=== PATIENT | female | born 1965 | race African-American/Black ===

== ENCOUNTER 2019-04-12 09:31 | Outpatient (CLI) | payer OTHER | END 2019-04-12 11:31 | disposition home or self-care (01) | LOC: ECT 09:31 | DX: F33.2 Major depressive disorder, recurrent severe without psychotic features (principal); F60.9 Personality disorder, unspecified; R53.1 Weakness; Z79.899 Other long term (current) drug therapy; Z81.8 Family history of other mental and behavioral disorders ==

== ENCOUNTER 2019-05-16 06:46 | Outpatient (RCR) | payer OTHER ==
[~2019-05-16] VITALS: Ht 170.2 cm; Wt 104.8 kg
[~2019-05-16 06:46] MED LIST: Ketorolac 30mg Inj ONE; Methohexital Sodium Syr 100mg/10ml IVP ONE; NS 500ML ONE; Succinylcholine 20mg/ml 10ml vial ONE
[2019-05-16] MEDS ORDERED: Midazolam 2mg/2ml Inj ONE (06:47)
[2019-05-16] MEDS ORDERED: Succinylcholine 20mg/ml 10ml vial ONE (06:47)
[2019-05-16] MEDS ORDERED: Methohexital Sodium Syr 100mg/10ml IVP ONE (06:47)
[2019-05-16] MEDS ORDERED: Excedrin Migraine tab ONE (06:47)
[2019-05-16] MEDS ORDERED: Ketorolac 60mg Inj IM ONE (06:47)
[2019-05-16] MEDS ORDERED: NS 500ML ONE (06:47)
[2019-05-16 10:53] VITALS: BP 141/81
[2019-05-16 11:03] VITALS: BP 138/71
[2019-05-16 11:08] VITALS: BP 134/57
[2019-05-16 11:13] VITALS: BP 131/65
[2019-05-16 11:18] VITALS: BP 145/64
[2019-05-16 13:30] VITALS: BP 141/81
[2019-05-18 09:02] VITALS: BP 144/81
[2019-05-18] MEDS ORDERED: Excedrin Migraine tab ORAL PRN (09:13)
[2019-05-18 09:15] VITALS: BP 152/76
[2019-05-18 09:20] VITALS: BP 153/72
[2019-05-18 09:25] VITALS: BP 150/76
[2019-05-18 09:30] VITALS: BP 155/76
[2019-05-21] MEDS ORDERED: Succinylcholine 20mg/ml 10ml vial ONE (06:00)
[2019-05-21] MEDS ORDERED: NS 500ML ONE (06:00)
[2019-05-21] MEDS ORDERED: Methohexital Sodium Syr 100mg/10ml IVP ONE (06:00)
[2019-05-21] MEDS ORDERED: Ketorolac 30mg Inj ONE (06:00)
[2019-05-21] MEDS ORDERED: Excedrin Migraine tab ONE (06:00)
[2019-05-21 08:03] VITALS: BP 126/52
[2019-05-21 08:51] VITALS: BP 172/79
[2019-05-21] MEDS ORDERED: Excedrin Migraine tab ORAL PRN (09:02)
[2019-05-21 09:08] VITALS: BP 152/84
[2019-05-21 09:13] VITALS: BP 143/79
[2019-05-21 09:18] VITALS: BP 137/72
== END 2019-05-21 | disposition home or self-care (01) ==
LOC: ECT 06:46
DX: F33.2 Major depressive disorder, recurrent severe without psychotic features (principal)
CPT/HCPCS: 90870; J0330; J1885; J2250; J7040

== ENCOUNTER 2019-05-23 10:16 | Outpatient (RCR) | payer OTHER ==
[~2019-05-23] VITALS: Ht 170.2 cm; Wt 104.8 kg
[2019-05-23 09:46] VITALS: BP 144/85
[2019-05-23 09:59] VITALS: BP 179/87
[2019-05-23 10:04] VITALS: BP 158/82
[2019-05-23 10:09] VITALS: BP 139/73
[2019-05-23 10:14] VITALS: BP 140/74
[~2019-05-23 10:16] MED LIST changes: +Excedrin Migraine tab ONE; +Excedrin Migraine tab ORAL PRN; +Midazolam 2mg/2ml Inj ONE
[2019-05-23] MEDS ORDERED: Excedrin Migraine tab ONE (10:17)
[2019-05-23] MEDS ORDERED: Succinylcholine 20mg/ml 10ml vial ONE (10:17)
[2019-05-23] MEDS ORDERED: Midazolam 2mg/2ml Inj ONE (10:17)
[2019-05-23] MEDS ORDERED: Methohexital Sodium Syr 100mg/10ml IVP ONE (10:17)
[2019-05-23] MEDS ORDERED: Ketorolac 60mg Inj IM ONE (10:17)
[2019-05-25 08:43] VITALS: BP 135/82
[2019-05-25] MEDS ORDERED: Excedrin Migraine tab ORAL PRN (08:53)
[2019-05-25 08:55] VITALS: BP 151/73
[2019-05-25 09:00] VITALS: BP 142/80
[2019-05-25] MEDS ORDERED: Excedrin Migraine tab ONE (09:00)
[2019-05-25] MEDS ORDERED: Ketorolac 60mg Inj IM ONE (09:00)
[2019-05-25] MEDS ORDERED: NS 500ML ONE (09:00)
[2019-05-25] MEDS ORDERED: Midazolam 2mg/2ml Inj ONE (09:00)
[2019-05-25] MEDS ORDERED: Succinylcholine 20mg/ml 10ml vial ONE (09:00)
[2019-05-25 09:05] VITALS: BP 142/77
[2019-05-25 09:10] VITALS: BP 145/74
[2019-05-28 08:30] VITALS: BP 131/83
[2019-05-28] MEDS ORDERED: Excedrin Migraine tab ORAL PRN (08:42)
[2019-05-28 08:45] VITALS: BP 171/84
[2019-05-28 08:50] VITALS: BP 140/83
[2019-05-28 08:55] VITALS: BP 133/74
[2019-05-28 09:00] VITALS: BP 136/68
[2019-05-28] MEDS ORDERED: NS 500ML ONE (09:00)
[2019-05-28] MEDS ORDERED: Ketorolac 60mg Inj IM ONE (09:00)
[2019-05-28] MEDS ORDERED: Succinylcholine 20mg/ml 10ml vial ONE (09:00)
[2019-05-28] MEDS ORDERED: Excedrin Migraine tab ONE (09:00)
[2019-05-28] MEDS ORDERED: Midazolam 2mg/2ml Inj ONE (09:00)
[2019-05-28] MEDS ORDERED: Methohexital Sodium Syr 100mg/10ml IVP ONE (09:00)
[2019-05-30 08:43] VITALS: BP 136/84
[2019-05-30] MEDS ORDERED: Excedrin Migraine tab ORAL PRN (08:54)
[2019-05-30 08:55] VITALS: BP 198/82
[2019-05-30 09:00] VITALS: BP 166/80
[2019-05-30] MEDS ORDERED: Methohexital Sodium Syr 100mg/10ml IVP ONE (09:00)
[2019-05-30] MEDS ORDERED: Midazolam 2mg/2ml Inj ONE (09:00)
[2019-05-30] MEDS ORDERED: Ketorolac 60mg Inj IM ONE (09:00)
[2019-05-30] MEDS ORDERED: NS 500ML ONE (09:00)
[2019-05-30] MEDS ORDERED: Succinylcholine 20mg/ml 10ml vial ONE (09:00)
[2019-05-30] MEDS ORDERED: Excedrin Migraine tab ONE (09:00)
[2019-05-30 09:05] VITALS: BP 151/80
[2019-05-30 09:10] VITALS: BP 147/74
[2019-06-01 09:04] VITALS: BP 130/83
[2019-06-01 09:15] VITALS: BP 151/84
[2019-06-01] MEDS ORDERED: Excedrin Migraine tab ORAL PRN (09:15)
[2019-06-01 09:20] VITALS: BP 140/70
[2019-06-01 09:25] VITALS: BP 150/83
[2019-06-01 09:30] VITALS: BP 153/78
[2019-06-04 08:54] VITALS: BP 132/83
[2019-06-04] MEDS ORDERED: Excedrin Migraine tab ONE (09:00)
[2019-06-04] MEDS ORDERED: NS 500ML ONE (09:00)
[2019-06-04] MEDS ORDERED: Methohexital Sodium Syr 100mg/10ml IVP ONE (09:00)
[2019-06-04] MEDS ORDERED: Succinylcholine 20mg/ml 10ml vial ONE (09:00)
[2019-06-04] MEDS ORDERED: Midazolam 2mg/2ml Inj ONE (09:00)
[2019-06-04] MEDS ORDERED: Ketorolac 60mg Inj IM ONE (09:00)
[2019-06-04] MEDS ORDERED: Excedrin Migraine tab ORAL PRN (09:05)
[2019-06-04 09:06] VITALS: BP 154/79
[2019-06-04 09:11] VITALS: BP 139/82
[2019-06-04 09:16] VITALS: BP 139/79
[2019-06-04 09:21] VITALS: BP 136/80
[2019-06-06] MEDS ORDERED: Ketorolac 60mg Inj IM ONE (09:00)
[2019-06-06] MEDS ORDERED: Methohexital Sodium Syr 100mg/10ml IVP ONE (09:00)
[2019-06-06] MEDS ORDERED: Midazolam 2mg/2ml Inj ONE (09:00)
[2019-06-06] MEDS ORDERED: Excedrin Migraine tab ONE (09:00)
[2019-06-06 09:12] VITALS: BP 146/92
[2019-06-06] MEDS ORDERED: Excedrin Migraine tab ORAL PRN (09:23)
[2019-06-06 09:25] VITALS: BP 147/76
[2019-06-06 09:30] VITALS: BP 144/82
[2019-06-06 09:35] VITALS: BP 145/72
[2019-06-06 09:40] VITALS: BP 147/71
[2019-06-08] MEDS ORDERED: Midazolam 2mg/2ml Inj ONE (09:00)
[2019-06-08] MEDS ORDERED: Excedrin Migraine tab ONE (09:00)
[2019-06-08] MEDS ORDERED: Methohexital Sodium Syr 100mg/10ml IVP ONE (09:00)
[2019-06-08] MEDS ORDERED: Succinylcholine 20mg/ml 10ml vial ONE (09:00)
[2019-06-08] MEDS ORDERED: NS 500ML ONE (09:00)
[2019-06-08] MEDS ORDERED: Ketorolac 60mg Inj IM ONE (09:00)
[2019-06-08 09:06] VITALS: BP 131/85
[2019-06-08 09:20] VITALS: BP 139/76
[2019-06-08 09:25] VITALS: BP 139/76
[2019-06-08 09:30] VITALS: BP 139/76
[2019-06-08 09:35] VITALS: BP 134/77
[2019-06-11] MEDS ORDERED: Excedrin Migraine tab ONE (06:00)
[2019-06-11] MEDS ORDERED: NS 500ML ONE (06:00)
[2019-06-11] MEDS ORDERED: Ketorolac 30mg Inj ONE (06:00)
[2019-06-11] MEDS ORDERED: Midazolam 2mg/2ml Inj ONE (06:00)
[2019-06-11] MEDS ORDERED: Succinylcholine 20mg/ml 10ml vial ONE (06:00)
[2019-06-11] MEDS ORDERED: Methohexital Sodium Syr 100mg/10ml IVP ONE (06:00)
[2019-06-11 09:15] VITALS: BP 143/91
[2019-06-11 09:25] VITALS: BP 192/96
[2019-06-11] MEDS ORDERED: Excedrin Migraine tab ORAL PRN (09:25)
[2019-06-11 09:30] VITALS: BP 160/81
[2019-06-11 09:35] VITALS: BP 140/82
[2019-06-11 09:40] VITALS: BP 141/82
[2019-06-15] MEDS ORDERED: Succinylcholine 20mg/ml 10ml vial ONE (09:00)
[2019-06-15] MEDS ORDERED: Methohexital Sodium Syr 100mg/10ml IVP ONE (09:00)
[2019-06-15] MEDS ORDERED: NS 500ML ONE (09:00)
[2019-06-15] MEDS ORDERED: Excedrin Migraine tab ONE (09:00)
[2019-06-15] MEDS ORDERED: Midazolam 2mg/2ml Inj ONE (09:00)
[2019-06-15] MEDS ORDERED: Ketorolac 60mg Inj IM ONE (09:00)
[2019-06-15 10:06] VITALS: BP 151/94
[2019-06-15 10:21] VITALS: BP 183/83
[2019-06-15] MEDS ORDERED: Excedrin Migraine tab ORAL PRN (10:21)
[2019-06-15 10:26] VITALS: BP 139/79
[2019-06-15 10:31] VITALS: BP 136/71
[2019-06-15 10:36] VITALS: BP 141/80
== END 2019-06-21 | disposition home or self-care (01) ==
LOC: ECT 10:16
DX: F33.2 Major depressive disorder, recurrent severe without psychotic features (principal)
CPT/HCPCS: 90870; J0330; J1885; J2250; J2405; J7040

== ENCOUNTER 2019-06-25 05:09 | Outpatient (RCR) | payer OTHER ==
[~2019-06-25] VITALS: Ht 170.2 cm; Wt 104.8 kg
[2019-06-25] MEDS ORDERED: Midazolam 2mg/2ml Inj ONE (06:00)
[2019-06-25] MEDS ORDERED: Excedrin Migraine tab ONE (06:00)
[2019-06-25] MEDS ORDERED: Succinylcholine 20mg/ml 10ml vial ONE (06:00)
[2019-06-25] MEDS ORDERED: NS 500ML ONE (06:00)
[2019-06-25] MEDS ORDERED: Methohexital Sodium Syr 100mg/10ml IVP ONE (06:00)
[2019-06-25] MEDS ORDERED: Ketorolac 30mg Inj ONE (06:00)
[2019-06-25 09:24] VITALS: BP 140/90
[2019-06-25] MEDS ORDERED: Excedrin Migraine tab ORAL PRN (09:35)
[2019-06-25 09:36] VITALS: BP 177/92
[2019-06-25 09:41] VITALS: BP 144/90
[2019-06-25 09:46] VITALS: BP 145/84
[2019-06-25 09:51] VITALS: BP 148/84
[2019-07-11] MEDS ORDERED: Methohexital Sodium Syr 100mg/10ml IVP ONE (06:00)
[2019-07-11] MEDS ORDERED: Excedrin Migraine tab ONE (06:00)
[2019-07-11] MEDS ORDERED: NS 500ML ONE (06:00)
[2019-07-11] MEDS ORDERED: Midazolam 2mg/2ml Inj ONE (06:00)
[2019-07-11] MEDS ORDERED: Ketorolac 30mg Inj ONE (06:00)
[2019-07-11] MEDS ORDERED: Succinylcholine 20mg/ml 10ml vial ONE (06:00)
[2019-07-11 09:53] VITALS: BP 143/93
[2019-07-11 10:05] VITALS: BP 171/81
[2019-07-11] MEDS ORDERED: Excedrin Migraine tab ORAL PRN (10:08)
[2019-07-11 10:10] VITALS: BP 148/89
[2019-07-11 10:15] VITALS: BP 150/77
[2019-07-11 10:20] VITALS: BP 148/85
== END 2019-07-21 | disposition home or self-care (01) ==
LOC: ECT 05:09
DX: F33.2 Major depressive disorder, recurrent severe without psychotic features (principal)
CPT/HCPCS: 90870; J0330; J1885; J2250; J7040

== ENCOUNTER 2019-08-01 06:03 | Outpatient (RCR) | payer OTHER ==
[~2019-08-01] VITALS: Ht 30.5 cm; Wt 0.5 kg
[2019-08-01] MEDS ORDERED: Methohexital Sodium Syr 100mg/10ml IVP ONE ×2 (06:04)
[2019-08-01] MEDS ORDERED: NS 500ML ONE ×2 (06:04)
[2019-08-01] MEDS ORDERED: Excedrin Migraine tab ONE ×2 (06:04)
[2019-08-01] MEDS ORDERED: Midazolam 2mg/2ml Inj ONE ×2 (06:04)
[2019-08-01] MEDS ORDERED: Succinylcholine 20mg/ml 10ml vial ONE ×2 (06:04)
[2019-08-01] MEDS ORDERED: Ketorolac 60mg Inj IM ONE ×2 (06:04)
[2019-08-01 09:20] VITALS: BP 145/90
[2019-08-01 09:30] VITALS: BP 202/93
[2019-08-01] MEDS ORDERED: Excedrin Migraine tab ORAL PRN (09:30)
[2019-08-01 09:35] VITALS: BP 166/86
[2019-08-01 09:40] VITALS: BP 146/82
[2019-08-01 09:45] VITALS: BP 143/84
== END 2019-08-21 | disposition home or self-care (01) ==
LOC: ECT 06:03
DX: F33.2 Major depressive disorder, recurrent severe without psychotic features (principal)
CPT/HCPCS: 90870; J2250

== ENCOUNTER 2019-10-01 08:10 | Outpatient (RCR) | payer OTHER ==
[~2019-10-01] VITALS: Ht 170.2 cm; Wt 104.8 kg
[~2019-10-01 08:10] MED LIST changes: -Excedrin Migraine tab ORAL PRN; -Ketorolac 30mg Inj ONE; +Ketorolac 60mg Inj IM ONE
[2019-10-01 08:34] VITALS: BP 128/80
[2019-10-01 08:45] VITALS: BP 193/94
[2019-10-01] MEDS ORDERED: Excedrin Migraine tab ORAL PRN (08:45)
[2019-10-01 08:50] VITALS: BP 146/78
[2019-10-01 08:55] VITALS: BP 141/75
[2019-10-01 09:00] VITALS: BP 137/81
[2019-10-15 08:37] VITALS: BP 174/103
[2019-10-15 08:49] VITALS: BP 189/93
[2019-10-15] MEDS ORDERED: Excedrin Migraine tab ORAL PRN (08:49)
[2019-10-15 08:54] VITALS: BP 173/100
[2019-10-15 08:59] VITALS: BP 172/89
[2019-10-15] MEDS ORDERED: Ketorolac 60mg Inj IM ONE (09:00)
[2019-10-15] MEDS ORDERED: NS 500ML ONE (09:00)
[2019-10-15] MEDS ORDERED: Midazolam 2mg/2ml Inj ONE (09:00)
[2019-10-15] MEDS ORDERED: Succinylcholine 20mg/ml 10ml vial ONE (09:00)
[2019-10-15] MEDS ORDERED: Methohexital Sodium Syr 100mg/10ml IVP ONE (09:00)
[2019-10-15] MEDS ORDERED: Excedrin Migraine tab ONE (09:00)
[2019-10-15 09:04] VITALS: BP 184/90
== END 2019-10-20 | disposition home or self-care (01) ==
LOC: ECT 08:10
DX: F33.2 Major depressive disorder, recurrent severe without psychotic features (principal)
CPT/HCPCS: 90870; J0330; J2250; J2405; J7040

== ENCOUNTER 2019-10-26 05:13 | Outpatient (RCR) | payer OTHER ==
[~2019-10-26] VITALS: Ht 170.2 cm; Wt 104.8 kg
[2019-10-26] MEDS ORDERED: Ketorolac 60mg Inj IM ONE (05:14)
[2019-10-26] MEDS ORDERED: Methohexital Sodium Syr 100mg/10ml IVP ONE (05:14)
[2019-10-26] MEDS ORDERED: Excedrin Migraine tab ONE (05:14)
[2019-10-26] MEDS ORDERED: NS 500ML ONE (05:14)
[2019-10-26] MEDS ORDERED: Midazolam 2mg/2ml Inj ONE (05:14)
[2019-10-26] MEDS ORDERED: Succinylcholine 20mg/ml 10ml vial ONE (05:14)
[2019-10-26 09:27] VITALS: BP 147/90
[2019-10-26 09:43] VITALS: BP 158/88
[2019-10-26] MEDS ORDERED: Excedrin Migraine tab ORAL PRN (09:43)
[2019-10-26 09:48] VITALS: BP 136/75
[2019-10-26 09:53] VITALS: BP 135/74
[2019-10-26 09:58] VITALS: BP 130/77
[2019-11-05] MEDS ORDERED: Methohexital Sodium Syr 100mg/10ml IVP ONE (06:00)
[2019-11-05] MEDS ORDERED: NS 500ML ONE (06:00)
[2019-11-05] MEDS ORDERED: Ketorolac 60mg Inj IM ONE (06:00)
[2019-11-05] MEDS ORDERED: Midazolam 2mg/2ml Inj ONE (06:00)
[2019-11-05] MEDS ORDERED: Succinylcholine 20mg/ml 10ml vial ONE (06:00)
[2019-11-05] MEDS ORDERED: Excedrin Migraine tab ONE (06:00)
[2019-11-05 08:20] VITALS: BP 135/88
[2019-11-05] MEDS ORDERED: Excedrin Migraine tab ORAL PRN (08:36)
[2019-11-05 08:37] VITALS: BP 160/91
[2019-11-05 08:42] VITALS: BP 132/76
[2019-11-05 08:47] VITALS: BP 130/76
[2019-11-05 08:52] VITALS: BP 127/75
[2019-11-12] MEDS ORDERED: Succinylcholine 20mg/ml 10ml vial ONE (09:00)
[2019-11-12] MEDS ORDERED: Ketorolac 60mg Inj IM ONE (09:00)
[2019-11-12] MEDS ORDERED: Excedrin Migraine tab ONE (09:00)
[2019-11-12] MEDS ORDERED: NS 500ML ONE (09:00)
[2019-11-12] MEDS ORDERED: Methohexital Sodium Syr 100mg/10ml IVP ONE (09:00)
[2019-11-12] MEDS ORDERED: Midazolam 2mg/2ml Inj ONE (09:00)
[2019-11-12 09:37] VITALS: BP 125/73
[2019-11-12] MEDS ORDERED: Excedrin Migraine tab ORAL PRN (09:48)
[2019-11-12 09:50] VITALS: BP 139/78
[2019-11-12 09:55] VITALS: BP 134/79
[2019-11-12 10:00] VITALS: BP 126/69
[2019-11-12 10:05] VITALS: BP 127/71
[2019-11-19 08:43] VITALS: BP 134/83
[2019-11-19] MEDS ORDERED: Lidocaine 2% 100mg/5ml Carp IV PRN (08:59)
[2019-11-19] MEDS ORDERED: Excedrin Migraine tab ORAL PRN (08:59)
[2019-11-19] MEDS ORDERED: Atropine Sulfate 0.4mg/ml inj IVP PRN (08:59)
[2019-11-19 09:00] VITALS: BP 145/71
[2019-11-19] MEDS ORDERED: NS 500ML ONE (09:00)
[2019-11-19] MEDS ORDERED: Excedrin Migraine tab ONE (09:00)
[2019-11-19] MEDS ORDERED: Succinylcholine 20mg/ml 10ml vial ONE (09:00)
[2019-11-19] MEDS ORDERED: Methohexital Sodium Syr 100mg/10ml IVP ONE (09:00)
[2019-11-19] MEDS ORDERED: Ketorolac 60mg Inj IM ONE (09:00)
[2019-11-19] MEDS ORDERED: Midazolam 2mg/2ml Inj ONE (09:00)
[2019-11-19 09:05] VITALS: BP 136/70
[2019-11-19 09:10] VITALS: BP 141/75
[2019-11-19 09:15] VITALS: BP 138/70
== END 2019-11-20 | disposition home or self-care (01) ==
LOC: ECT 05:13
DX: F33.2 Major depressive disorder, recurrent severe without psychotic features (principal)
CPT/HCPCS: 90870; J0330; J2250; J2405; J7040

== ENCOUNTER 2019-11-26 05:25 | Outpatient (RCR) | payer OTHER ==
[~2019-11-26] VITALS: Ht 30.5 cm; Wt 0.5 kg
[2019-11-26] MEDS ORDERED: Excedrin Migraine tab ONE (05:26)
[2019-11-26] MEDS ORDERED: Methohexital Sodium Syr 100mg/10ml IVP ONE (05:26)
[2019-11-26] MEDS ORDERED: Ketorolac 60mg Inj IM ONE (05:26)
[2019-11-26] MEDS ORDERED: Midazolam 2mg/2ml Inj ONE (05:26)
[2019-11-26] MEDS ORDERED: NS 500ML ONE (05:26)
[2019-11-26] MEDS ORDERED: Succinylcholine 20mg/ml 10ml vial ONE (05:26)
[2019-11-26 08:27] VITALS: BP 156/108
[2019-11-26] MEDS ORDERED: Excedrin Migraine tab ORAL PRN (08:43)
[2019-11-26 08:45] VITALS: BP 170/80
[2019-11-26 08:50] VITALS: BP 151/87
[2019-11-26 08:55] VITALS: BP 143/82
[2019-11-26 09:00] VITALS: BP 161/78
[2019-12-05 08:52] VITALS: BP 147/97
[2019-12-05] MEDS ORDERED: Excedrin Migraine tab ONE (09:00)
[2019-12-05] MEDS ORDERED: Midazolam 2mg/2ml Inj ONE (09:00)
[2019-12-05] MEDS ORDERED: Ketorolac 60mg Inj IM ONE (09:00)
[2019-12-05] MEDS ORDERED: NS 500ML ONE (09:00)
[2019-12-05] MEDS ORDERED: Succinylcholine 20mg/ml 10ml vial ONE (09:00)
[2019-12-05] MEDS ORDERED: Methohexital Sodium Syr 100mg/10ml IVP ONE (09:00)
[2019-12-05] MEDS ORDERED: Excedrin Migraine tab ORAL PRN (09:05)
[2019-12-05 09:06] VITALS: BP 152/84
[2019-12-05 09:11] VITALS: BP 145/84
[2019-12-05 09:16] VITALS: BP 145/84
[2019-12-05 09:21] VITALS: BP 139/89
== END 2019-12-20 | disposition home or self-care (01) ==
LOC: ECT 05:25
DX: F33.2 Major depressive disorder, recurrent severe without psychotic features (principal)
CPT/HCPCS: 90870; J0330; J2250; J2405; J7040

== ENCOUNTER 2019-12-24 05:50 | Outpatient (RCR) | payer OTHER ==
[~2019-12-24] VITALS: Ht 170.2 cm; Wt 104.8 kg
[2019-12-24] MEDS ORDERED: Excedrin Migraine tab ONE (05:51)
[2019-12-24] MEDS ORDERED: Methohexital Sodium Syr 100mg/10ml IVP ONE (05:51)
[2019-12-24] MEDS ORDERED: Midazolam 2mg/2ml Inj ONE (05:51)
[2019-12-24] MEDS ORDERED: Succinylcholine 20mg/ml 10ml vial ONE (05:51)
[2019-12-24] MEDS ORDERED: NS 500ML ONE (05:51)
[2019-12-24] MEDS ORDERED: Ketorolac 60mg Inj IM ONE (05:51)
[2019-12-24 10:03] VITALS: BP 143/84
[2019-12-24 10:19] VITALS: BP 158/92
[2019-12-24] MEDS ORDERED: Atropine Sulfate 0.4mg/ml inj IVP PRN (10:19)
[2019-12-24] MEDS ORDERED: Excedrin Migraine tab ORAL PRN (10:19)
[2019-12-24] MEDS ORDERED: Lidocaine 2% 100mg/5ml Carp IV PRN (10:19)
[2019-12-24 10:24] VITALS: BP 156/79
[2019-12-24 10:29] VITALS: BP 149/79
[2019-12-24 10:34] VITALS: BP 151/71
[2020-01-09] MEDS ORDERED: Ketorolac 60mg Inj IM ONE (09:00)
[2020-01-09] MEDS ORDERED: Excedrin Migraine tab ONE (09:00)
[2020-01-09] MEDS ORDERED: Succinylcholine 20mg/ml 10ml vial ONE (09:00)
[2020-01-09] MEDS ORDERED: Midazolam 2mg/2ml Inj ONE (09:00)
[2020-01-09] MEDS ORDERED: NS 500ML ONE (09:00)
[2020-01-09] MEDS ORDERED: Methohexital Sodium Syr 100mg/10ml IVP ONE (09:00)
[2020-01-09 10:09] VITALS: BP 198/90
[2020-01-09] MEDS ORDERED: Excedrin Migraine tab ORAL PRN (10:24)
[2020-01-09] MEDS ORDERED: Atropine Sulfate 0.4mg/ml inj IVP PRN (10:24)
[2020-01-09] MEDS ORDERED: Lidocaine 2% 100mg/5ml Carp IV PRN (10:24)
[2020-01-09 10:25] VITALS: BP 164/79
[2020-01-09 10:30] VITALS: BP 155/83
[2020-01-09 10:35] VITALS: BP 144/83
[2020-01-09 10:40] VITALS: BP 144/84
== END 2020-01-20 | disposition home or self-care (01) ==
LOC: ECT 05:50
DX: F33.2 Major depressive disorder, recurrent severe without psychotic features (principal)
CPT/HCPCS: 90870; J0330; J2250; J2405; J7040

== ENCOUNTER 2020-01-30 05:26 | Outpatient (RCR) | payer OTHER ==
[~2020-01-30] VITALS: Ht 170.2 cm; Wt 104.8 kg
[2020-01-30] MEDS ORDERED: Ketorolac 30mg Inj ONE (06:00)
[2020-01-30] MEDS ORDERED: Succinylcholine 20mg/ml 10ml vial ONE (06:00)
[2020-01-30] MEDS ORDERED: Excedrin Migraine tab ONE (06:00)
[2020-01-30] MEDS ORDERED: Methohexital Sodium Syr 100mg/10ml IVP ONE (06:00)
[2020-01-30] MEDS ORDERED: NS 500ML ONE (06:00)
[2020-01-30] MEDS ORDERED: Midazolam 2mg/2ml Inj ONE (06:00)
[2020-01-30 09:25] VITALS: BP 135/86
[2020-01-30 09:45] VITALS: BP 149/84
[2020-01-30] MEDS ORDERED: Atropine Sulfate 0.4mg/ml inj IVP PRN (09:49)
[2020-01-30] MEDS ORDERED: Lidocaine 2% 100mg/5ml Carp IV PRN (09:49)
[2020-01-30] MEDS ORDERED: Excedrin Migraine tab ORAL PRN (09:49)
[2020-01-30 09:50] VITALS: BP 149/87
[2020-01-30 09:55] VITALS: BP 149/83
[2020-01-30 10:00] VITALS: BP 149/72
== END 2020-02-19 | disposition home or self-care (01) ==
LOC: ECT 05:26
DX: F33.2 Major depressive disorder, recurrent severe without psychotic features (principal)
CPT/HCPCS: 90870; J0330; J1885; J2250; J2405; J7040

== ENCOUNTER 2020-02-20 05:21 | Outpatient (RCR) | payer OTHER ==
[~2020-02-20] VITALS: Ht 170.2 cm; Wt 104.8 kg
[2020-02-27] MEDS ORDERED: Methohexital Sodium Syr 100mg/10ml IVP ONE (06:00)
[2020-02-27] MEDS ORDERED: Ketorolac 30mg Inj ONE (06:00)
[2020-02-27] MEDS ORDERED: Succinylcholine 20mg/ml 10ml vial ONE (06:00)
[2020-02-27] MEDS ORDERED: Excedrin Migraine tab ONE (06:00)
[2020-02-27] MEDS ORDERED: NS 500ML ONE (06:00)
[2020-02-27] MEDS ORDERED: Midazolam 2mg/2ml Inj ONE (06:00)
[2020-02-27 09:05] VITALS: BP 144/90
[2020-02-27] MEDS ORDERED: Excedrin Migraine tab ORAL PRN (09:16)
[2020-02-27 09:17] VITALS: BP 171/91
[2020-02-27 09:22] VITALS: BP 173/100
[2020-02-27 09:27] VITALS: BP 158/82
[2020-02-27 09:32] VITALS: BP 146/84
== END 2020-03-21 | disposition home or self-care (01) ==
LOC: ECT 05:21
DX: F33.2 Major depressive disorder, recurrent severe without psychotic features (principal)
CPT/HCPCS: 90870; J0330; J1885; J2250; J2405; J7040

== ENCOUNTER 2020-03-26 04:25 | Outpatient (RCR) | payer OTHER ==
[2020-03-26] VITALS (7 sets, daily range): BP systolic 148–208; BP diastolic 84–102
[~2020-03-26] VITALS: Ht 170.2 cm; Wt 105.0 kg
[2020-03-26] MEDS ORDERED: Methohexital Sodium Syr 100mg/10ml IVP ONE (04:26)
[2020-03-26] MEDS ORDERED: Succinylcholine 20mg/ml 10ml vial ONE (04:26)
[2020-03-26] MEDS ORDERED: Midazolam 2mg/2ml Inj ONE (04:26)
[2020-03-26] MEDS ORDERED: Ketorolac 60mg Inj IM ONE (04:26)
[2020-03-26] MEDS ORDERED: Excedrin Migraine tab ONE (04:26)
[2020-03-26] MEDS ORDERED: NS 500ML ONE (04:26)
[2020-03-26] MEDS ORDERED: Excedrin Migraine tab ORAL PRN (10:29)
[2020-03-26] MEDS ORDERED: Lidocaine 2% 100mg/5ml Carp IV PRN (10:29)
[2020-03-26] MEDS ORDERED: Atropine Sulfate 0.4mg/ml inj IVP PRN (10:29)
== END 2020-04-21 | disposition home or self-care (01) ==
LOC: ECT 04:25
DX: F33.2 Major depressive disorder, recurrent severe without psychotic features (principal)
CPT/HCPCS: 90870; J0330; J2250; J2405; J7040

== ENCOUNTER 2020-04-23 05:40 | Outpatient (RCR) | payer OTHER ==
[2020-04-23] VITALS (7 sets, daily range): BP systolic 134–158; BP diastolic 77–90
[~2020-04-23] VITALS: Ht 170.2 cm; Wt 104.8 kg
[2020-04-23] MEDS ORDERED: Succinylcholine 20mg/ml 10ml vial ONE (05:41)
[2020-04-23] MEDS ORDERED: Midazolam 2mg/2ml Inj ONE (05:41)
[2020-04-23] MEDS ORDERED: NS 500ML ONE (05:41)
[2020-04-23] MEDS ORDERED: Ketorolac 30mg Inj ONE (05:41)
[2020-04-23] MEDS ORDERED: Excedrin Migraine tab ONE (05:41)
[2020-04-23] MEDS ORDERED: Etomidate 40mg/20ml Inj IV ONE (05:41)
[2020-04-23] MEDS ORDERED: Excedrin Migraine tab ORAL PRN (10:30)
[2020-05-21] VITALS (7 sets, daily range): BP systolic 136–161; BP diastolic 72–86
[2020-05-21] MEDS ORDERED: Etomidate 40mg/20ml Inj IV ONE (06:00)
[2020-05-21] MEDS ORDERED: NS 500ML ONE (06:00)
[2020-05-21] MEDS ORDERED: Methohexita Syr 100mg/10ml IVP ONE (06:00)
[2020-05-21] MEDS ORDERED: Midazolam 2mg/2ml Inj ONE (06:00)
[2020-05-21] MEDS ORDERED: Succinylcholine 20mg/ml 10ml vial ONE (06:00)
[2020-05-21] MEDS ORDERED: Excedrin Migraine tab ONE (06:00)
[2020-05-21] MEDS ORDERED: Ketorolac 60mg Inj IM ONE (06:00)
[2020-05-21] MEDS ORDERED: Excedrin Migraine tab ORAL PRN (10:30)
== END 2020-05-21 | disposition home or self-care (01) ==
LOC: ECT 05:40
DX: F33.2 Major depressive disorder, recurrent severe without psychotic features (principal)
CPT/HCPCS: 90870; J0330; J1885; J2250; J2405; J7040

== ENCOUNTER 2020-06-11 05:10 | Outpatient (RCR) | payer OTHER ==
[~2020-06-11] VITALS: Ht 30.5 cm; Wt 0.5 kg
[2020-06-13] VITALS (7 sets, daily range): BP systolic 126–165; BP diastolic 63–86
[2020-06-13] MEDS ORDERED: Etomidate 40mg/20ml Inj IV ONE (06:00)
[2020-06-13] MEDS ORDERED: NS 500ML ONE (06:00)
[2020-06-13] MEDS ORDERED: Ketorolac 60mg Inj IM ONE (06:00)
[2020-06-13] MEDS ORDERED: Midazolam 2mg/2ml Inj ONE (06:00)
[2020-06-13] MEDS ORDERED: Excedrin Migraine tab ONE (06:00)
[2020-06-13] MEDS ORDERED: Succinylcholine 20mg/ml 10ml vial ONE (06:00)
[2020-06-13] MEDS ORDERED: Excedrin Migraine tab ORAL PRN (10:06)
[2020-06-13] MEDS ORDERED: Etomidate 40mg/20ml Inj IV SCH ×2 (10:06)
== END 2020-06-21 | disposition home or self-care (01) ==
LOC: ECT 05:10
DX: F33.2 Major depressive disorder, recurrent severe without psychotic features (principal)
CPT/HCPCS: 90870; J0330; J2250; J2405; J7040

== ENCOUNTER 2020-07-16 05:36 | Outpatient (RCR) | payer OTHER ==
[~2020-07-16] VITALS: Ht 170.2 cm; Wt 104.8 kg
[2020-07-21] VITALS (7 sets, daily range): BP systolic 155–167; BP diastolic 79–107
[2020-07-21] MEDS ORDERED: Excedrin Migraine tab ONE (06:00)
[2020-07-21] MEDS ORDERED: NS 500ML ONE (06:00)
[2020-07-21] MEDS ORDERED: Etomidate 40mg/20ml Inj IV ONE (06:00)
[2020-07-21] MEDS ORDERED: Midazolam 2mg/2ml Inj ONE (06:00)
[2020-07-21] MEDS ORDERED: Ketorolac 30mg Inj ONE (06:00)
[2020-07-21] MEDS ORDERED: Succinylcholine 20mg/ml 10ml vial ONE (06:00)
[2020-07-21] MEDS ORDERED: SUMAtriptan 6mg/0.5ml Inj SUBQ ONE (06:00)
[2020-07-21] MEDS ORDERED: Etomidate 40mg/20ml Inj IV SCH (08:54)
[2020-07-21] MEDS ORDERED: Atropine Sulfate 0.4mg/ml inj IVP PRN (08:54)
[2020-07-21] MEDS ORDERED: Excedrin Migraine tab ORAL PRN (08:54)
== END 2020-07-21 | disposition home or self-care (01) ==
LOC: ECT 05:36
DX: F33.2 Major depressive disorder, recurrent severe without psychotic features (principal)
CPT/HCPCS: 90870; J0330; J1885; J2250; J2405; J3030; J7040

== ENCOUNTER 2020-08-18 05:29 | Outpatient (RCR) | payer OTHER ==
[~2020-08-18] VITALS: Ht 30.5 cm; Wt 0.5 kg
[2020-08-18] VITALS (7 sets, daily range): BP systolic 143–174; BP diastolic 85–101
[2020-08-18] MEDS ORDERED: NS 500ML ONE (05:30)
[2020-08-18] MEDS ORDERED: Ketorolac 60mg Inj IM ONE (05:30)
[2020-08-18] MEDS ORDERED: Excedrin Migraine tab ONE (05:30)
[2020-08-18] MEDS ORDERED: Midazolam 2mg/2ml Inj ONE (05:30)
[2020-08-18] MEDS ORDERED: SUMAtriptan 6mg/0.5ml Inj SUBQ ONE (05:30)
[2020-08-18] MEDS ORDERED: Etomidate 40mg/20ml Inj IV SCH (09:04)
[2020-08-18] MEDS ORDERED: Excedrin Migraine tab ORAL PRN (09:04)
== END 2020-08-21 | disposition home or self-care (01) ==
LOC: ECT 05:29
DX: F33.2 Major depressive disorder, recurrent severe without psychotic features (principal)
CPT/HCPCS: 90870; J2250; J3030; J7040

== ENCOUNTER 2020-10-06 06:11 | Outpatient (RCR) | payer OTHER ==
[2020-10-06] VITALS (7 sets, daily range): BP systolic 149–163; BP diastolic 65–116
[~2020-10-06] VITALS: Ht 170.2 cm; Wt 104.8 kg
[2020-10-06] MEDS ORDERED: Ketorolac 60mg Inj IM ONE (06:12)
[2020-10-06] MEDS ORDERED: Excedrin Migraine tab ONE (06:12)
[2020-10-06] MEDS ORDERED: Midazolam 2mg/2ml Inj ONE (06:12)
[2020-10-06] MEDS ORDERED: Etomidate 40mg/20ml Inj IV ONE (06:12)
[2020-10-06] MEDS ORDERED: Succinylcholine 20mg/ml 10ml vial ONE (06:12)
[2020-10-06] MEDS ORDERED: Methohexita Syr 100mg/10ml IVP ONE (06:12)
[2020-10-06] MEDS ORDERED: NS 500ML ONE (06:12)
[2020-10-06] MEDS ORDERED: Excedrin Migraine tab ORAL PRN (10:29)
== END 2020-10-19 | disposition home or self-care (01) ==
LOC: ECT 06:11
DX: F33.2 Major depressive disorder, recurrent severe without psychotic features (principal)
CPT/HCPCS: 90870; J0330; J1100; J2250; J2405; J7040